=== PATIENT | female | born 1990 | race Caucasian/White ===

== ENCOUNTER 2020-05-17 09:49 | Outpatient (CLI) | payer OTHER, SELFPAY ==
--- NOTE | ~2020-05-17 | US_ITS ---
EXAMINATION: US retroperitoneal duplex ltd, US renal BI DATE: 05/17/2020 10:45 INDICATION: hypertension TECHNIQUE: Multiple grayscale, color Doppler, and pulsed Doppler images of the kidneys and renal rylie chanell were obtained. COMPARISON: None. FINDINGS: There is normal renal contour and echogenicity bilaterally. The right kidney measures 10.5 x 4.2 x 5. 6 cm and the left 10.8 x 5.8 x 5.1 cm. Anechoic cyst measuring 1.6 cm the upper pole of the right kid juliette and 1 cm at the lower pole of the right kidney. There appears to be a nodular echogenic component at the periphery of the cyst at the upper pole of the right kidney. No shadowing nephrolithiasis or hydronephrosis. The bladder is partially decompressed which limits evaluation. There are no focal renal lesions identified. There is no hydronephrosis. The aorta peak systolic velocity is 84 cm/s. The right renal artery peak systolic velocity is 66 cm/s in the proximal segment , 78 cm/s in the mid segment, and 70 cm/s in the distal segment. The left renal artery peak systolic velocity is 57 cm/s in the proximal segment, 75 cm/s in the mid segment, and 77 cm/s in the distal se gment. IMPRESSION: 1. No Doppler evidence of renal artery stenosis. 2. A couple cystic lesions at the right kidney, the larger at the upper pole measuring 1.6 cm with po ssible peripheral soft tissue component raising concern for neoplasm. Would recommend pre and postcon trast MRI for further evaluation. Reviewed, dictated and finalized at location A. IMPRESSION: 1. No Doppler evidence of renal artery stenosis. 2. A couple cystic lesions at the right kidney, the larger at the upper pole me asuring 1.6 cm with possible peripheral soft tissue component raising concern f or neoplasm. Would recommend pre and postcontrast MRI for further evaluation.
== END 2020-05-17 09:50 | disposition home or self-care (01) ==
PROVIDERS: PCP Internal Medicine; Visit Provider Internal Medicine
DX: I10 Essential (primary) hypertension (principal)
CPT/HCPCS: 76775; 93976

== ENCOUNTER 2020-05-27 07:31 | Outpatient (CLI) | payer OTHER, SELFPAY ==
--- NOTE | ~2020-05-27 | MR_ITS ---
EXAMINATION: MR abdomen wo/w con INDICATION: Indeterminate right kidney mass TECHNIQUE: Coronal SSFSE ARC, WATER:coronal LAVA-FLEX, Coronal 2D FIESTA FatSat, Axial SSFSE BH ARC, Axial 3D DualEcho BH, Axial SSFSE-IR, Axial DWI b=500, Axial 2D FIESTA FatSat, pre and dynamic postco ntrast Axial LAVA ARC, postcontrast Coronal In and Opposed phase LAVA FLEX COMPARISON: Ultrasound, 05/17/2020 CONTRAST: Multihance, 11 cc FINDINGS: There are two simple cysts of the right kidney which account for the lesions in question on the comparison ultrasound. One measures 1.6 cm in the upper pole and the other 0.9 cm in the lower p ole. No suspicious kidney mass is identified. The lung bases are clear. The heart size is normal. The liver, spleen, pancreas, gallbladder, and adrenal glands are normal. There are no pathologically enl arged abdominal lymph nodes. No dilated loops of bowel are evident. IMPRESSION: 1. Simple cysts of the right kidney accounting for the lesions in question on comparison ultrasound. Reviewed, dictated and finalized at location B. IMPRESSION: 1. Simple cysts of the right kidney accounting for the lesions in question on c omparison ultrasound.
== END 2020-05-27 07:32 | disposition home or self-care (01) ==
PROVIDERS: PCP Internal Medicine; Visit Provider Internal Medicine
DX: N28.1 Cyst of kidney, acquired (principal)
CPT/HCPCS: 74183; A9577

== ENCOUNTER 2023-09-21 02:20 | Day surgery (SDC) | payer OTHER, SELFPAY ==
[2023-09-16 15:09] VITALS: BMI 21.4
--- NOTE | 2023-09-16 15:30 | PC.NURSE ---
Report to the Outpatient Waiting Room, entrance under the green pavilion located off [facility], at time _0930 on date __09/21/23 . Planned Procedure Time: _1130 . Time changes happen often and if your time is changed the preop area will call you the afternoon before. - You and your visitor will be asked to self-screen and do not enter if you have any COVID symptoms. - A mask is optional within the hospital at this time. Patients may have clear liquids (water, carbonated beverages, clear teas, apple juice) until 3 hours prior to surgery with a maximum of 20 ounces. - No food from midnight until time of surgery - Infants may have breast milk until 4 hours before surgery, formula 6 hours prior to surgery. - Children will be allowed to drink immediately following surgery. If applicable, please bring a bottle or sippy cup to assist with drinking. Juice, water, soda, and popsicles are readily available. For infants on formula, please bring formula the day of surgery. Pacifiers are allowed. Take the following medications with a SIP of water the morning of surgery: __Birth control, levothyroxine, sarecycline, sertraline, venlafaxine DO NOT STOP ANY OF YOUR OTHER PRESCRIPTION MEDICATIONS PRIOR TO SURGERY ?EXCEPT THE FOLLOWING Medications to discontinue per physician ___Vitamins and supplements 3 days prior Please no make-up, nail greenlandic, hairspray, perfume, deodorant, or body powder the day of surgery. No jewelry (including any body piercings) or valuables the day of surgery, leave them at home. Please take a shower or bath the night before, or the morning of, surgery with an antibacterial soap. Wear comfortable, loose fitting clothing. Children are encouraged to wear pajamas. - Jewelry must be removed prior to entering the operating room. Rings and piercings that are not removed may be cut off. - The hospital will not accept responsibility for valuables. - Please leave all valuables, including medications, at home the day of surgery. If you are going home after surgery, a licensed hi low truck driver must drive you home. - NO public transportation without another adult if you receive anesthesia. - We recommend that an adult stay with you for 24 hours following discharge. - We also recommend that you do not drive, make important decision, drink alcoholic beverages, or take any drugs that were not prescribed by your health care provider for at least 24 hours after your discharge time. For Pediatric surgeries, we recommend two adults accompany the child home. Follow any additional instructions given to you from your surgeon. If you or anyone in your household have experienced Covid symptoms in the past week, please notify your surgeon or the nurse liaison at the phone number below for possible testing. Telephone instructions given to __Megan and asked if any additional questions and then verbalized understanding. Patient advised to call surgeon office or pre surgery nurse liaison [phone] if any additional questions.
[2023-09-21] VITALS (7 sets, daily range): BP systolic 123–136; BP diastolic 68–82; PULSE 81–100; RESP 14–18; TEMP 36.2–36.7; O2SAT 94–100
[2023-09-21] MEDS: LACTATED RINGERS 1,000 ML 30 ML IV CONT ×3 (09:30→14:17)
--- NOTE | 2023-09-21 10:09 | WPDANESEPPF ---
Anes - Initial Pre Proc Eval Procedure: Operation Date: 09/21/23 11:30 Proposed Procedures p Bilateral Breast Reduction - Leonard Jolley MD Date/Time: 09/21/23 10:09 Surgeon: Leonard Jolley MD Pre Op Diagnosis: macromastia, Patient Data Age: 32 Gender: F Height: 1.63 m Weight: 57.4 kg Last Vital Signs Temp 36.2 C L 09/21/23 09:27 Pulse 85 09/21/23 09:27 Resp 16 09/21/23 09:27 BP 129/70 09/21/23 09:27 Pulse Ox 100 09/21/23 09:27 O2 Del Method Room Air 09/21/23 09:27 Allergies Allergy/AdvReac Type Severity Reaction Status Date / Time No Known Allergies Allergy Verified 09/16/23 14:55 Home Medications Medication Instructions Recorded Confirmed Type levothyroxine 88 mcg tablet See Rx Instructions .Route 03/22/23 09/21/23 Rx .COMPLEX #90 tabs sumatriptan succinate 50 mg tablet See Rx Instructions .Route 04/05/23 09/21/23 Rx .COMPLEX #10 tabs drospirenone 3 mg-estetrol 14.2 mg See Rx Instructions PO .COMPLEX 07/16/23 09/21/23 History (28) tablet (Nextstellis) sarecycline 60 mg tablet (Seysara) 60 mg PO DAILY 07/16/23 09/21/23 History sertraline 100 mg tablet See Rx Instructions .Route 07/16/23 09/21/23 Rx .COMPLEX #90 tabs venlafaxine 75 mg capsule,extended 75 mg PO DAILY #90 caps 07/16/23 09/21/23 Rx release 24 hr lactobacillus combination no.8 3 See Rx Instructions .Route .COMPLEX 09/16/23 09/21/23 History billion cell capsule multivit with minerals-iron 18 1 tablet PO DAILY 09/16/23 09/21/23 History mg-folic ac 400 mcg-vit K 25 mcg tablet (Adults Multivitamin) losartan 100 mg tablet See Rx Instructions .Route 09/20/23 09/21/23 Rx .COMPLEX #90 tabs Laboratory Tests 09/21/23 09:17 Cotinine Pending Patient hx anesthesia problems: none Family hx anesthesia problems: none Results Review: All pre-operative results and documents have been reviewed as part of the pre-operative evaluation. [facility] Past Medical History Medical History 31 weeks gestation of Abnormal finding of blood chemistry Acne Anemia Anxiety Bite BMI 23.0-23.9, adult BMI 25.0-25.9,adult Cerumen impaction Dyslipidemia Encounter for preventive health examination Encounter for routine adult health examination without abnormal findings Follow up Frequent headaches Hypertension Hypothyroidism Melanoma Mild depression On local intermodal truck driver drug therapy Renal mass Swelling of lymph node URI (upper respiratory infection) Social History Social History Smoking status: Never smoker Second hand tobacco smoke exposure: No Alcohol intake: former Alcohol use details: 3 years ago socially Substance use: former Substance use type: marijuana Other substance usage details: THC Gummies Last use: July 2023 Lack of Transportation: No Lack of Food: Never True Current Housing: I Have Housing Concerned About Future Housing: No Difficulty Paying Gas/Electric Bills: No Difficulty Paying for Meds: No Currently Unemployed: No Education: Master's Degree or Higher Difficulty w/ Childcare or Family Care: No Living arrangements: with family Occupation/Education: occupation Gender identity (if verbalized by the patient): Female Spiritual care concerns: No Anes - Eval Final PreProcedure Day of Procedure 09/21/23 10:09 Patient weight: normal Heart: regular rate and rhythm Lungs: clear to auscultation Airway: Mallampati scale class II Neurological: alert and oriented Last oral intake: >/= 8 hours ASA classification: II Emergent: no Anesthetic plan: proceed Anesthesia type and monitoring: general ETT and standard monitoring Results Review: All pre-operative results and documents have been reviewed as part of the pre-operative evaluation. Informed Consent: The patient's anesthetic plan and its attenda
[2023-09-21 10:21] LABS: Urine Cotinine NEGATIVE
[2023-09-21] MEDS: ACETAMINOPHEN 500 MG TABLET 1000 MG PO (11:03)
[2023-09-21] MEDS: SCOPOLAMINE 1 MG PATCH 1 PATCH TRANSDERM (11:06)
--- NOTE | 2023-09-21 11:07 | WPDHPUPDATE1 ---
History and Physical Update Update Date/Time: 09/21/23 11:07 History and Physical has been reviewed, including an updated exam of the patient. There are NO changes in the patient's condition. Risks, benefits, and alternatives have been discussed and questions answered. Patient agrees to proceed with procedure.
[2023-09-21] MEDS: TRANEXAMIC ACID 1,000MG/ISO100 1,000 MG/100 ML BAG 200 MG IVPB (11:37)
[2023-09-21] MEDS: ceFAZolin 2 GM/D5W 50 ML 2 GM/50 ML BAG IVPB (11:37)
--- NOTE | 2023-09-21 11:43 | P.OP_ITS ---
Procedure Note - Detailed Date of Procedure 09/21/23 Pre-op Diagnosis macromastia, Post-op Diagnosis Same Procedure Performed Bilateral reduction mammaplasty Surgeon Leonard Jolley MD Anesthesia General Findings Inverted T Right - Superior pedicle Left - Superior medial pedicel Tissue removed: Right - 113 grams Left - 158 grams Description of Procedure She is here today for bilateral breast reduction. Previously and again today the risks, benefits, alternatives were discussed in extensive detail. I wanted her to be very realistic about the risks involved as well as expectations. We discussed aftercare and what to monitor for. She understands we can never guarantee final breast size and there will always be asymmetry. I was very upfront and honest about the risks of sensation change and even nipple loss (). Made sure answered all of her questions to her satisfaction today and consent was obtained. She was marked in the preoperative holding area with their verification. The patient was taken to the operating room placed supine on the operating table. Anesthesia was provided by anesthesiology. She was prepped and draped in a standard sterile fashion. A surgical time-out was taken. Stab incisions were made and I tumesced with a tumescent solution. I marked out the nipple-areolar complex at 42 mm. I then de-epithelialized the pedicle. The pedicle was well left well more than 2 cm in thickness. I then removed the inferior portion of the breast as well as the central keel to get shape based on preoperative planning. At this point copiously irrigated with saline solution and verified a strict hemostasis. I reapproximated the pillars using a 2-0 PDS. I tailor tacked the breast into place with hamzah. She was placed in a sitting position. I verified the nipple-areolar complex position based on preoperative markings, intraoperative measurements, and observation which were in full agreement. This nipple-areolar complex was marked at 42 mm in size. I then placed supine and de-epithelialized this. Nipple-areolar complex was inset with 3-0 Monocryl. I closed IMF deep with 1 strattafix. I closed the vertical incision with 3-0 Monocryl in the IMF with 3- 0 stratafix. Then everything was closed using a running subcuticular 4-0 Monocryl and tissue glue. A dressing was placed followed by surgical bra. Patient was awoke and taken to PACU without difficulty. All instrument sponge counts were correct at the end of the case. Estimated Blood Loss 100 Drains No Packing No Pathology Yes Complications No immediate complications Condition Stable Disposition PACU
[2023-09-21] MEDS: LACTATED RINGERS IRRIG 1,000 ML, LIDOCAINE HCL 1% LOCAL INJ 50 ML, EPINEPHrine HCL INJ ... INFILTRATE (12:00)
[2023-09-21 12:09] LABS: BEDSIDEPREGUCG Negative
--- NOTE | 2023-09-21 13:10 | SUR.OPER ---
Surgical specimens sent to pathology fresh by AMARI Samuel. [employer] notified by Jimmie that specimens had been given to Matthew in lab.
[2023-09-21] MEDS: fentaNYL CITRATE INJ (*CRX) 100 MCG/2 ML VIAL 25 MCG IV PUSH ×2 (14:25→14:40)
[2023-09-21] MEDS: ONDANSETRON INJ 4 MG/2 ML VIAL IV PUSH (14:25)
[2023-09-21] MEDS: oxyCODONE HCL (*CRX) 5 MG TAB IR PO (15:36)
== END 2023-09-21 16:10 | disposition home or self-care (01) ==
PROVIDERS: PCP Internal Medicine; Visit Provider Surgery Plastic and Reconstructive Surgery
PROC: 0HBV0ZZ Excision of Bilateral Breast, Open Approach (ICD-10-PCS; CPT 19318; principal; 2023-09-21 11:30)
DX: Z41.1 Encounter for cosmetic surgery (principal); L57.4 Cutis laxa senilis; N62 Hypertrophy of breast; I10 Essential (primary) hypertension; E78.5 Hyperlipidemia, unspecified; E03.9 Hypothyroidism, unspecified; D64.9 Anemia, unspecified; F41.9 Anxiety disorder, unspecified; F32.A Depression, unspecified; F12.90 Cannabis use, unspecified, uncomplicated; Z87.891 Personal history of nicotine dependence; Z85.820 Personal history of malignant melanoma of skin
CPT/HCPCS: 19318; 80307; 88305; A9270; J0171; J0690; J1100; J1170; J2250; J2405; J2704; J3010; J7120